=== PATIENT | male | born 1975 | race Caucasian/White ===

== ENCOUNTER 2024-08-21 16:16 | Emergency (ER) | payer MEDICAID, SELFPAY ==
[2024-08-21 16:36] VITALS: BP 141/93; PULSE 87; RESP 20; TEMP 36.8; O2SAT 97; BMI 36.6
--- NOTE | 2024-08-21 17:15 | ED_ITS ---
HPI - General Adult General: Chief complaint: Upper Respiratory Infection Stated complaint: pain when swallowing Time Seen by Provider: 08/21/24 17:03 Source: patient Mode of arrival: ambulatory Limitations: no limitations History of Present Illness: 49-year-old male presents to the ER with complaints of a sore throat. Patient states 4 days ago he woke up in the middle of the night with his teeth ch attering, chills, body aches. Had a headache for 2 days following this that subsided. No documented fevers. 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 Patient denies fever, chills, chest pain, SOB, palpitations, abdominal pain, vomiting. No rash. Onset (ago): day(s) Radiation: non-radiation Severity: moderate Pain Consistency: constant Relieving factors: none Exacerbating factors: other (swallowing) Associated symptoms: Reports no associated symptoms; Deny chest pain, cough, decreased appetite, dyspnea, headache(s), nausea, rash, palpitations, seizures, short of breath or vomiting Related Data Allergies Allergy/AdvReac Type Severity Reaction Status Date / Time No Known Allergies Allergy Verified 08/21/24 16:44 Review of Systems Const: Reports: chills and body aches; Denies: fever(s) Eyes: Denies: change in vision, blurry vision, eye discomfort, eye discharge or eye redness ENMT: Reports: throat pain, odynophagia and nasal congestion; Denies: ear or mastoid pain Card: Denies: chest pain or palpitations Resp: Denies: dyspnea GI: Denies: abdominal pain, nausea or vomiting Musc: Denies: neck pain Skin/Breast: Denies: rash Neuro: Denies: headache(s), numbness in extremities or weakness in extremities Physical Exam Const: COMMON NORMALS: no acute distress, patient oriented x3, no limitations, alert and well nourished GENERAL APPEARANCE: cooperative ORIENTATION/CONSCIOUSNESS: Yes awake, Yes oriented to person, Yes oriented to place and Yes oriented to time HENMT: COMMON NORMALS: normocephalic, atraumatic, hearing grossly normal bilaterally, external ears normal and EAC's normal HEAD & SCALP: normal to inspection, normocephalic and atraumatic FACE & SINUS: sinus tenderness frontal and maxillary NOSE: Other nasal findings present (mild irritation) EXTERNAL EAR: Yes external ears normal EXTERNAL AUDITORY CANAL: EAC's normal TYMPANIC MEMBRANE: TM abnormal (chronic tympanosclerosis bilaterally) TM laterality: bilateral MOUTH: Normal oral and palatal mucosa present, lip normal, tongue normal and Normal salivary glands and ducts present; no audible dysphonia and no drooling THROAT: posterior oropharynx abnormal erythema Eye: GENERAL EYE: appearance normal, both eyes and all related structures Neck/C-Spine: COMMON NORMALS: no lymphadenopathy Lymph: LYMPHATIC: no lymphadenopathy noted Chest: COMMONS NORMALS: normal inspection of the chest Resp: COMMON NORMALS: normal respiratory effort and clear to auscultation bilaterally EFFORT & INSPECTION: Yes able to speak in complete sentences A USCULTATION: clear to auscultation bilaterally Cardio: COMMON NORMALS: regular rate and regular rhythm RATE: regular rate RHYTHM: regular rhythm Neuro: COMMON NORMALS: patient oriented x3 SENSORIUM/ORIENTATION: Yes alert, Yes oriented to person, Yes oriented to place and Yes oriented to time Skin: COMMON NORMALS: no rashes or lesions noted GENERAL SKIN EXAM: no rashes or lesions noted Course Vital Signs: Vital signs: Vital Signs Temperature 98.2 F 08/21/24 16:36 Pulse Rate 87 08/21/24 16:36 Respiratory Rate 20 H 08/21/24 16:36 Blood Pressure 141/93 08/21/24 16:36 Pulse Oximetry 97 08/21/24 16:36 Oxygen Delivery Me thod Room Air 08/21/24 16:36 MDM - General Adult Medical Decision Making Patient here with likely viral URI. He has been in close contact with several other individuals with similar symptoms. Strep, influenza/RSV/COVID were negative here. Conservative therapies discussed. Return precautions given. Lab Data I reviewed the patient's lab results. Laboratory Results Influenza A (PCR) Negative (Negative) 08/21/24 17:08 Influenza Type B (PCR) Negative (Negative) 08/21/24 17:08 RSV (PCR) Negative (Negative) 08/21/24 17:08 SARS-CoV-2 (PCR) Negative (Negative) 08/21/24 17:08 Group A Strep Rapid Negative (Negative) 08/21/24 17:19 No radiology studies performed this visit Discharge Plan Discharge Patient Disposition: Home Clinical Impression: Upper respiratory infection, viral Condition: Stable Discharge Orders: Discharge ED (Routine); Ordered 08/21/24 Ordered By: Daisha Jacobs Referrals: Montez Prasad DO [Primary Care Provider] - Patient Instructions: Upper Respiratory Infection (DC) Print Language: Yi Coding Level of Care Code ED [employer] Technician for Marlene Goncalves
[2024-08-21 18:02] LABS: Rapid Strep A Test Negative (Negative)
[2024-08-21 18:30] LABS: Influenza A NEGATIVE (Negative); Influenza B NEGATIVE (Negative); Respiratory Syncytial Virus Ce NEGATIVE (Negative); SARS-CoV-2 PCR NEGATIVE (Negative)
== END 2024-08-21 18:54 | disposition home or self-care (01) ==
PROVIDERS: Emergency Provider Physician Assistant; PCP Family Medicine
DX: J06.9 Acute upper respiratory infection, unspecified (principal); Z11.52 Encounter for screening for COVID-19
CPT/HCPCS: 87081; 87637; 87880; 99283